=== PATIENT | male | born 1925 | race Caucasian/White ===

== ENCOUNTER 2016-08-07 07:30 | Emergency (ER) | payer MEDICARE ==
[~2016-08-07] VITALS: Ht 182.8 cm; Wt 86.2 kg
[~2016-08-07 07:30] MED LIST: ASPIRIN ADULT L81 M1 PO; CARAFATE1 GM PO; Feosol300 MG PO; PRILOSEC20 M1 PO; PROTONIX20 MG PO; SIMVASTATIN20 MG PO
[2016-08-07 07:34] VITALS: BP 155/96
[2016-08-07 08:10] LABS: BASO % 0.3 % (0.0-1.0); EOS # 0.5 10*3/uL (0.0-0.4); EOS % 4.9 % (1.0-4.0); HEMATOCRIT 40.2 % (42.0-52.0); HEMOGLOBIN 12.9 g/dl (14.0-18.0); LYMPH # 1.3 10*3/uL (1.3-4.4); LYMPH % 12.6 % (27.0-41.0); MEAN CELL VOLUME 88.7 fl (80.0-94.0); MEAN CORPUSCULAR HGB 28.5 pg (27.0-31.0); MEAN CORPUSCULAR HGB CONC 32.1 g/dl (33.0-37.0); MEAN PLATELET VOLUME 10.2 fl (9.6-12.3); MONO # 0.9 10*3/uL (0.1-1.0); NEUT # 7.5 10*3/uL (2.3-7.9); NEUT % 72.9 % (47.0-73.0); PLATELET COUNT AUTOMATED 233 10*3/uL (130-400); RED BLOOD COUNT 4.53 10*6/uL (4.50-5.90); RED CELL DISTRI WIDTH 13.7 % (0-14.5); WHITE BLOOD COUNT 10.2 10*3/uL (4.8-10.8)
[2016-08-07 08:28] LABS: ALBUMIN 3.7 gm/dl (3.1-4.5); ALKALINE PHOSPHATASE 62 U/L (45-117); BILIRUBIN, TOTAL 0.5 mg/dl (0.2-1.0); BUN 19 mg/dl (7-24); CARBON DIOXIDE 24 mmol/L (21-32); CHLORIDE 107 mmol/L (98-107); EST GLOM FILT AFRICAN AMERICAN 50 ml/min; GLUCOSE 122 mg/dL (65-99); POTASSIUM 3.8 mmol/L (3.5-5.1); SGOT/AST 17 IU/L (3-35); SGPT/ALT 18 U/L (12-78); SODIUM 143 mmol/L (136-145); TOTAL PROTEIN 7.5 gm/dL (6.4-8.2)
[2016-08-07 08:30] LABS: TROPONIN I < 0.015 ng/ml (<0.045)
[2016-08-07] MEDS ORDERED: VENTOLIN H0.09 MG/AC INH (09:07)
[2016-08-07] MEDS ORDERED: DOXYCYCLINE100 M3 PO (09:07)
[2016-08-07] MEDS ORDERED: PREDNISONE10 MG PO (09:07)
== END 2016-08-07 09:10 | disposition home or self-care (01) ==
LOC: ED 07:30
PROVIDERS: Student in an Organized Health Care Education/Training Program
DX: J18.1 Lobar pneumonia, unspecified organism (principal); J06.9 Acute upper respiratory infection, unspecified

== ENCOUNTER → 2016-12-21 | Day surgery (SDC) | payer MEDICARE ==
[~2016-12-21] VITALS: Ht 180.3 cm; Wt 86.2 kg
[~2016-12-21] MED LIST changes: +ASPIRIN81 M1 PO; +DOXYCYCLINE100 M3 PO; +FISH OIL500 M2 PO; +FLOMAX0.4 MG PO; +PREDNISONE10 MG PO; +PROSCAR5 M1 PO; +VENTOLIN H0.09 MG/AC INH; +VITAMIN D31000 UNI1 PO
--- NOTE | ~2016-12-21 | O ---
[place], [place] OPERATIVE NOTE NAME: MARISOL CASTRO [facility] #: [id number] UNIT #: [id number] ROOM: DOCTOR: JULIO SMART MD BIRTHDATE: [birth year] DOS: 12/21/2016 PREOPERATIVE DIAGNOSIS: Cataract, right eye. POSTOPERATIVE DIAGNOSIS: Cataract, right eye. OPERATION: Extracapsular cataract extraction by phacoemulsification with posterior chamber intraocular lens implantation, right eye. ANESTHESIA: Monitored standby. OPERATIVE FINDINGS AND PROCEDURE: 2% Xylocaine topical anesthetic gel was applied to the eye in the preop area. The patient was taken to the operating room and prepped and draped in the standard fashion for sterile intraocular surgery. A time out procedure was performed verifying correct patient, correct site and corrects lens with Aury Smart M.D. The operating microscope was swung into position and the lid speculum was inserted. Using a Nadia paracentesis blade, a paracentesis was made through clear cornea. Viscoelastic was used to fill the anterior chamber. Using a metal keratome a 2.4 mm self-sealing clear corneal cataract incision was made temporally at the limbus. Using a pre-bent 25 gauge cystotome needle, a standard continuous curvilinear capsulorrhexis was performed. The anterior capsule was removed with forceps. The lens nucleus was hydrodissected and phacoemulsified in the posterior chamber. Cortical material was removed with the irrigation aspiration hand piece and the posterior capsule was then polished with a curet under irrigation. The posterior chamber and capsular bag were filled with viscoelastic. A posterior chamber intraocular lens manufactured by: [employer], Model #[id number], and 22.5 diopters in strength were then inserted into the posterior chamber and within the capsular bag using the lens cartridge and injector system. Viscoelastic was removed using the irrigation aspiration handpiece. The anterior chamber was filled with balanced salt solution through the paracentesis. Both the paracentesis site and cataract incisions were hydrated with BSS and verified to be water-tight and self-sealing. Cefuroxime 1 mg/0.1 mL was injected into the anterior chamber through the paracentesis site. The incision checked to be water-tight using a Weck-Rachel sponge. The integrity of the cataract wound and ocular tension were checked. Lid speculum and drapes were removed. The patient was transferred from the operating room to the recovery room in satisfactory condition. [place], [place] OPERATIVE NOTE NAME: MARISOL CASTRO UNIT #: [id number] ROOM: DOCTOR: JULIO SMART MD BIRTHDATE: [birth year] JULIO SMART MD CM:OPRECORD:OPERATIVE NOTE 1501 1523 JULIO SMART MD 12/21/16 1522 interface
[2016-12-21 13:50] VITALS: BP 156/92
[2016-12-21 14:59] VITALS: BP 132/81
[2016-12-21 15:10] VITALS: BP 142/88
[2016-12-21 15:26] VITALS: BP 134/66
== END | disposition home or self-care (01) ==
LOC: SDC 12-15 09:30
DX: H26.9 Unspecified cataract (principal); E78.00 Pure hypercholesterolemia, unspecified; Z90.49 Acquired absence of other specified parts of digestive tract; Z98.890 Other specified postprocedural states

== ENCOUNTER → 2016-12-28 | Day surgery (SDC) | payer MEDICARE ==
[~2016-12-28] VITALS: Ht 180.3 cm; Wt 86.2 kg
--- NOTE | ~2016-12-28 | O ---
[place], [place] OPERATIVE NOTE [facility]: [id number] UNIT #: [id number] ROOM: DOCTOR: JULIO SMART MD BIRTHDATE: [birth year] DOS: 12/28/2016 PREOPERATIVE DIAGNOSIS: Cataract, left eye. POSTOPERATIVE DIAGNOSIS: Cataract, left eye. OPERATION: Extracapsular cataract extraction by phacoemulsification with posterior chamber intraocular lens implantation, left eye. ANESTHESIA: Monitored standby. OPERATIVE FINDINGS AND PROCEDURE: 2% Xylocaine topical anesthetic gel was applied to the eye in the preop area. The patient was taken to the operating room and prepped and draped in the standard fashion for sterile intraocular surgery. A time out procedure was performed verifying correct patient, correct site and corrects lens with Aury Smart MD. The operating microscope was swung into position and the lid speculum was inserted. Using a Nadia paracentesis blade, a paracentesis was made through clear cornea. Viscoelastic was used to fill the anterior chamber. Using a metal keratome a 2.4 mm self-sealing clear corneal cataract incision was made temporally at the limbus. Using a pre-bent 25 gauge cystotome needle, a standard continuous curvilinear capsulorrhexis was performed. The anterior capsule was removed with forceps. The lens nucleus was hydrodissected and phacoemulsified in the posterior chamber. Cortical material was removed with the irrigation aspiration hand piece and the posterior capsule was then polished with a curet under irrigation. The posterior chamber and capsular bag were filled with viscoelastic. A posterior chamber intraocular lens manufactured by: [employer], Model #[id number], and 23.5 diopters in strength were then inserted into the posterior chamber and within the capsular bag using the lens cartridge and injector system. Viscoelastic was removed using the irrigation aspiration handpiece. The anterior chamber was filled with balanced salt solution through the paracentesis. Both the paracentesis site and cataract incisions were hydrated with BSS and verified to be water-tight and self-sealing. Cefuroxime 1 mg/0.1 mL was injected into the anterior chamber through the paracentesis site. The incision checked to be water-tight using a Weck-Rachel sponge. The integrity of the cataract wound and ocular tension were checked. Lid speculum and drapes were removed. The patient was transferred from the operating room to the recovery room in satisfactory condition. [place], [place] OPERATIVE NOTE NAME: MARISOL CASTRO UNIT #: [id number] ROOM: DOCTOR: JULIO SMART MD BIRTHDATE: [birth year] JULIO SMART MD CM:OPRECORD:OPERATIVE NOTE 1415 1537 JULIO SMART MD 12/28/16 1537 interface
[2016-12-28 12:22] VITALS: BP 152/79
[2016-12-28 13:20] VITALS: BP 145/82
[2016-12-28 13:35] VITALS: BP 125/84
[2016-12-28 13:50] VITALS: BP 143/89
== END | disposition home or self-care (01) ==
LOC: SDC 12-23 12:30
DX: H26.9 Unspecified cataract (principal); E78.00 Pure hypercholesterolemia, unspecified; Z98.890 Other specified postprocedural states; Z90.49 Acquired absence of other specified parts of digestive tract